=== PATIENT | female | born 1935 | race Two or more races ===

== ENCOUNTER 2020-12-30 14:03 | Emergency (ER) | payer OTHER ==
[~2020-12-30] VITALS: Ht 170.2 cm; Wt 75.7 kg
[2020-12-30] MEDS ORDERED: AMLODIPINE-OLM1 EAC3 PO (14:16)
[2020-12-30] MEDS ORDERED: NAMENDA10 MG PO (14:16)
[2020-12-30] MEDS ORDERED: ATORVASTATIN CA40 MG PO (14:16)
[2020-12-30] MEDS ORDERED: CLONAZEPAM0.5 MG PO (14:17)
[2020-12-30] MEDS ORDERED: PAXIL20 MG PO (14:17)
== END 2020-12-30 22:40 | disposition home or self-care (01) ==
LOC: ER 14:03
DX: S32.512A Fracture of superior rim of left pubis, initial encounter for closed fracture (principal); S06.2X0A Diffuse traumatic brain injury without loss of consciousness, initial encounter; M12.551 Traumatic arthropathy, right hip; M12.552 Traumatic arthropathy, left hip; W18.09XA Striking against other object with subsequent fall, initial encounter; Y93.89 Activity, other specified; Y92.018 Other place in single-family (private) house as the place of occurrence of the external cause; Y99.8 Other external cause status

== ENCOUNTER 2021-02-21 14:20 | Outpatient (CLI) | payer OTHER ==
[~2021-02-21 14:20] MED LIST: AMLODIPINE-OLM1 EAC3 PO; ATORVASTATIN CA40 MG PO; CLONAZEPAM0.5 MG PO; NAMENDA10 MG PO; PAXIL20 MG PO
== END 2021-02-21 15:30 | disposition home or self-care (01) ==
LOC: PPH VACUNA 14:20
PROVIDERS: ATTEND Emergency Medicine Pediatric Emergency Medicine
DX: Z23 Encounter for immunization (principal)